=== PATIENT | male | born 1930 | race Caucasian/White ===

== ENCOUNTER 2016-04-12 08:19 | Emergency (ER) | payer OTHER, MEDICARE ==
[~2016-04-12] VITALS: Ht 182.9 cm; Wt 70.2 kg
[~2016-04-12 08:19] MED LIST: ACIDOPHILUS LA1 EACH PO; ASCORBIC ACID100 MG PO; ASPIR 8181 M1 PO; ATORVASTATIN CA40 MG PO; BISAC-EVAC10 MG PR; CEPHALEXIN500 MG PO; COLACE100 MG PO; DOXYCYCLINE HY100 M3 PO; METOPROLOL SUCC50 MG PO; SENNA8.6 MG PO; TRAMADOL HCL50 MG PO; TYLENOL REGULA325 MG PO; TYLENOL WITH C1 EACH PO; VITAMIN B12 100MCG PO
[2016-04-12 09:41] LABS: ADD MIUA? NO; BILIRUBIN NEGATIVE; BLOOD NEGATIVE; COLOR STRAW ((YELLOW)); GLUCOSE (STRIP) NEGATIVE; KETONES NEGATIVE; LEUKOCYTES NEGATIVE; NITRITE NEGATIVE; PROTEIN (STRIP) NEGATIVE; SPECIFIC GRAVITY 1.012 (1.000-1.030); UCUL ADDED? NO; UROBILINOGEN 0.2 MG/DL (0.2-1.0)
[2016-04-12 09:53] LABS: HEMATOCRIT 34.9 % (38.0-50.0); MCH 33.2 PG (29.0-34.0); MCHC 33.8 G/DL (30.0-36.0); MCV 98.3 FL (86-99); MEAN PLAT.VOLUME 9.7 uM^3 (9.0-12.4); PLATELET COUNT 211 K/uL (156-360); RBC DIS.WIDTH-CV 12.4 % (11.8-14.6); RBC DIS.WIDTH-SD 41.7 % (39-53); RED BLOOD COUNT 3.55 M/uL (4.00-5.50); WHITE BLOOD COUNT 5.7 K/uL (4.1-10.2)
[2016-04-12 10:05] LABS: CHLORIDE 108 mEq/L (99-109); POTASSIUM 3.9 mEq/L (3.7-5.4); SODIUM 146 mEq/L (136-147)
[2016-04-12 10:07] LABS: GLUCOSE 75 mg/dL (70-99)
[2016-04-12 10:08] LABS: ANION GAP 9 MEQ/L (2-14)
[2016-04-12 10:09] LABS: TOTAL BILIRUBIN 0.9 mg/dL (0.0-1.0)
[2016-04-12 10:10] LABS: ALKALINE PHOSPHATASE 72 IU/L (3-129); GFR ESTIMATE (CALCULATED) > 59 mL/min/
[2016-04-12 10:12] LABS: UREA NITROGEN (BUN) 19 mg/dL (9-23)
[2016-04-12] MEDS ORDERED: MIRALAX17 GM PO (13:22)
[2016-04-12] MEDS ORDERED: KEFLEX500 MG PO (13:22)
[2016-04-12 13:58] VITALS: BP 186/77
== END 2016-04-12 13:56 | disposition home or self-care (01) ==
LOC: EME 08:19
DX: R10.31 Right lower quadrant pain (principal); K59.00 Constipation, unspecified; L03.116 Cellulitis of left lower limb; I25.2 Old myocardial infarction; Z86.73 Personal history of transient ischemic attack (TIA), and cerebral infarction without residual deficits; Z88.2 Allergy status to sulfonamides; Z88.0 Allergy status to penicillin; Z88.1 Allergy status to other antibiotic agents
CPT/HCPCS: 74177; 80053; 81003; 85027; 99281; 99285; J7030

== ENCOUNTER 2017-02-02 10:49 | Emergency (ER) | payer OTHER, MEDICARE ==
[~2017-02-02] VITALS: Ht 180.3 cm; Wt 71.1 kg
[~2017-02-02 10:49] MED LIST changes: +KEFLEX500 MG PO; +MIRALAX17 GM PO
[2017-02-02 12:19] LABS: HEMATOCRIT 25.9 % (38.0-50.0); HEMOGLOBIN 7.7 G/DL (12.5-16.6); MCH 24.7 PG (29.0-34.0); MCHC 29.7 G/DL (30.0-36.0); PLATELET COUNT 237 K/uL (156-360); RBC DIS.WIDTH-CV 14.4 % (11.8-14.6); RBC DIS.WIDTH-SD 42.9 % (39-53); RED BLOOD COUNT 3.12 M/uL (4.00-5.50); WHITE BLOOD COUNT 4.5 K/uL (4.1-10.2)
[2017-02-02 12:28] LABS: CHLORIDE 108 mEq/L (99-109); POTASSIUM 3.7 mEq/L (3.7-5.4); SODIUM 144 mEq/L (136-147)
[2017-02-02 12:30] LABS: GLUCOSE 91 mg/dL (70-99); TOTAL PROTEIN 7.1 g/dL (6.4-8.3)
[2017-02-02 12:32] LABS: TOTAL BILIRUBIN 0.5 mg/dL (0.0-1.0)
[2017-02-02 12:34] LABS: ALKALINE PHOSPHATASE 72 IU/L (3-129); GFR ESTIMATE (CALCULATED) > 59 mL/min/
[2017-02-02 12:35] LABS: AST (GOT) 17 IU/L (2-34); UREA NITROGEN (BUN) 21 mg/dL (9-23)
[2017-02-02 12:37] LABS: ALT (GPT) 13 IU/L (3-49)
[2017-02-02 12:43] LABS: TROP-I INTERPRETATION NEGATIVE; TROPONIN-I < 0.01 ng/mL (0.0-0.30)
[2017-02-02 13:08] LABS: APPEARANCE CLEAR ((CLEAR)); BILIRUBIN NEGATIVE; BLOOD NEGATIVE; COLOR COLORLESS ((YELLOW)); GLUCOSE (STRIP) NEGATIVE; KETONES NEGATIVE; LEUKOCYTES NEGATIVE; NITRITE NEGATIVE; PROTEIN (STRIP) NEGATIVE; SPECIFIC GRAVITY 1.005 (1.000-1.030); UROBILINOGEN 0.2 MG/DL (0.2-1.0)
[2017-02-02 15:12] VITALS: BP 120/55
[2017-02-14] MEDS ORDERED: PROBIOTIC1 EAC1 PO (10:26)
[2017-02-14] MEDS ORDERED: ZYRTEC10 M3 PO (10:27)
[2017-02-14] MEDS ORDERED: KLOR-CON M1010 MEQ PO (10:27)
[2017-02-14] MEDS ORDERED: TUMS FRESHERS200 MG PO (10:28)
== END 2017-02-02 15:13 | disposition home or self-care (01) ==
LOC: EME 10:49
PROVIDERS: Emergency Medicine Emergency Medical Services
DX: R53.1 Weakness (principal); K44.9 Diaphragmatic hernia without obstruction or gangrene; D64.9 Anemia, unspecified; J06.9 Acute upper respiratory infection, unspecified; Z85.51 Personal history of malignant neoplasm of bladder; K21.9 Gastro-esophageal reflux disease without esophagitis; I25.2 Old myocardial infarction; M19.90 Unspecified osteoarthritis, unspecified site; Z86.73 Personal history of transient ischemic attack (TIA), and cerebral infarction without residual deficits; Z79.82 Long term (current) use of aspirin; Z88.0 Allergy status to penicillin; Z88.1 Allergy status to other antibiotic agents; Z88.2 Allergy status to sulfonamides
CPT/HCPCS: 71010; 80053; 81003; 83880; 84484; 85027; 85610; 93005; 99281; 99284